=== PATIENT | male | born 1950 | race Caucasian/White ===

== ENCOUNTER 2020-05-20 13:12 | Outpatient (CLI) | payer MEDICARE, OTHER ==
--- NOTE | 2020-05-20 14:37 | ULT ---
BILATERAL RENAL ULTRASOUND: 05/20/20 HISTORY: Chronic renal failure. FINDINGS: The right kidney measures 10.4 cm in length and the left kidney measures 10.2 cm in length. There is no hydronephrosis seen on either side. A 2.5 cm cyst is seen in the superior pole of the left kidney. No right ---- or mass identified. The urinary bladder is grossly unremarkable with bilateral ureter al jets. IMPRESSION: 1. Left renal cyst. 2. No evidence of high grade urinary tract obstruction. POS: OFF
== END 2020-05-20 13:13 | disposition home or self-care (01) ==
LOC: BICULT 13:12
PROVIDERS: ATTEND Family Medicine
DX: N18.3 Chronic kidney disease, stage 3 (moderate) (principal); N28.1 Cyst of kidney, acquired
CPT/HCPCS: 76770

== ENCOUNTER 2020-06-14 09:11 | Outpatient (CLI) | payer MEDICARE, OTHER ==
[~2020-06-14 09:11] MED LIST: Iopamidol 370 76% 100 ML VIAL ONE
--- NOTE | 2020-06-14 12:52 | CT ---
CTA CHEST WITH CONTRAST: Axial tomograms were obtained following aortogram protocol with multiplanar reconstruction and 3D pos t processing. INDICATION: Ascending aortic dilatation noted on echo. FINDINGS: There is mild aneurysmal dilatation of the ascending aorta. Ascending aorta measured at up to 4.5 cm in the axial plane. The diameter at the sinus of Valsalva is measured at 4.1 cm which is upper normal for a male patient of this age. Sinotubular diameter is measured at 3.1 cm which is within normal range for a male patient of this ag e. The upper descending thoracic aorta measures 3.2 cm which is increased for a male patient of this age (normal proximal descending is 2.0 cm). The lower descending thoracic aorta measured at 3.0 cm which his upper normal. There is no evidence of dissection. Proximal pulmonary arteries are opacified and there is no evidence of proximal pulmonary embolus. Em boli beyond the pulmonary artery bifurcations cannot be assessed as this exam was performed with an a ortogram protocol. Mediastinum is otherwise unremarkable with no evidence of adenopathy. Lung goddard appear clear. No infiltrate or effusion. Images through the upper abdomen reveal a mass density in the superior right lobe under the diaphragm measuring 4.5 cm. This shows some peripheral nodular enhancement and may represent hemangioma, alth ough it cannot be characterized on this single aortogram phase exam. There is a smaller cystic lesion along the anterior margin of the more inferior right lobe of the keli er measuring approximately 1.0 cm. There is a cyst involving the superior left kidney which measures 2.0 cm. IMPRESSION: 1. Aneurysmal dilatation of the ascending thoracic aorta as described above. 2. Ectasia of the descending thoracic aorta as noted above. 3. A 4.5 cm mass superior right lobe of liver which is indeterminate on this single-phase study. Re commend a followup MRI abdomen with and without contrast following liver mass protocol/hemangioma pro tocol to adequately characterize this liver mass. POS: OFF
== END 2020-06-14 09:12 | disposition home or self-care (01) ==
LOC: CT 09:11
PROVIDERS: ATTEND Internal Medicine Cardiovascular Disease
DX: I77.810 Thoracic aortic ectasia (principal); K76.89 Other specified diseases of liver
CPT/HCPCS: 71275; Q9967